=== PATIENT | female | born 1975 | race Caucasian/White ===

== ENCOUNTER 2022-04-29 11:54 | Day surgery (SDC) | payer OTHER ==
[2022-04-26 13:53] VITALS: BMI 19.5
[2022-04-29] MEDS ORDERED: LIDOCAINE HCL/PF 2% SDV 5ML VIAL ONE (12:32)
[2022-04-29 14:21] VITALS: BP 104/60; PULSE 67; TEMP 98.2
== END 2022-04-29 14:15 | disposition home or self-care (01) ==
LOC: FASU-ENDO 11:54
PROVIDERS: ATTEND Internal Medicine Gastroenterology
PROC: 0DJD8ZZ Inspection of Lower Intestinal Tract, Via Natural or Artificial Opening Endoscopic (ICD-10-PCS; principal; 2022-04-29 12:48)
DX: Z12.11 Encounter for screening for malignant neoplasm of colon (principal); K64.1 Second degree hemorrhoids
CPT/HCPCS: 84703